=== PATIENT | female | born 1945 | race Caucasian/White ===

== ENCOUNTER → 2016-10-10 | Outpatient (CLI) | payer MEDICARE, OTHER ==
[~2016-10-10] MED LIST: ALBU6.7H INH; AMIO200T42 PO; APIX5TAB PO; ASPI-650 PO; FOLI-17 PO; FURO20TA3 PO; HYDR1TAB12 PO; LEVO125T5 PO; MAGN400T7 PO; METO25TA91 PO; MULT1TAB60 PO; OMEG1CAP6 PO; OMNIPAQUE 350 MG/ML, 100ML BOTTLE ONE; POTA10TA12 PO; PSYL1PAC9 PO; SIMV20TA3 PO; UBID10CA5 PO; VALS1TAB24 PO; VALS80TA3 PO
== END | disposition home or self-care (01) ==
LOC: CFH 10:39
PROVIDERS: ATTEND Specialist
DX: C54.1 Malignant neoplasm of endometrium (principal)
CPT/HCPCS: 74177; Q9967

== ENCOUNTER → 2016-10-30 | Outpatient (CLI) | payer MEDICARE, OTHER ==
[~2016-10-30] MED LIST changes: -OMNIPAQUE 350 MG/ML, 100ML BOTTLE ONE
[2016-10-30 11:13] LABS: BLOOD UREA NITROGEN 20 mg/dL (7-18)
[2016-10-30 11:16] LABS: ASPARTATE AMINO TRANSFERASE 12 U/L (15-37)
== END | disposition home or self-care (01) ==
LOC: STAR 09:53
PROVIDERS: ATTEND Specialist
DX: Z01.818 Encounter for other preprocedural examination (principal); C54.1 Malignant neoplasm of endometrium; R79.1 Abnormal coagulation profile; Z90.710 Acquired absence of both cervix and uterus; Z90.722 Acquired absence of ovaries, bilateral
CPT/HCPCS: 36415; 71020; 80053; 85025; 85610; 85730; 93005